=== PATIENT | female | born 1970 ===

== ENCOUNTER 2018-11-25 12:20 | Emergency (ER) | payer OTHER, SELFPAY ==
[2018-11-25 12:32] VITALS: RESP 18
[2018-11-25] MEDS ORDERED: Sodium Chloride 0.9% 1,000 ML IV STA (12:51)
[2018-11-25 13:13] LABS: BASO # 0.1 K/uL (0.0-0.2); BASO % 0.4 % (0.0-2.0); EOS % 0.1 % (0.0-4.0); HEMOGLOBIN 12.7 g/dL (11.0-16.0); LYMPH # 1.5 K/uL (1.0-4.3); LYMPH % 10.9 % (20.0-40.0); MEAN CELL VOLUME 86.7 fL (81.0-99.0); MEAN CORPUSCULAR HEMOGLOBIN 28.9 pg (27.0-31.0); MEAN CORPUSCULAR HGB CONC 33.3 g/dL (33.0-37.0); MEAN PLATELET VOLUME 7.5 fL (7.2-11.7); MONO # 1.3 K/uL (0.0-0.8); MONO % 9.8 % (0.0-10.0); NEUT # 10.5 K/uL (1.8-7.0); NEUT % 78.8 % (50.0-75.0); RBC 4.39 Mil/uL (3.80-5.20); RED CELL DISTRIBUTION WIDTH 13.2 % (11.5-14.5); WHITE BLOOD COUNT 13.3 K/uL (4.8-10.8)
[2018-11-25 13:20] LABS: HCG,QUALITATIVE URINE NEGATIVE (NEGATIVE)
[2018-11-25 13:25] LABS: ALB/GLOB RATIO 1.3 (1.0-2.1); ALBUMIN 4.7 g/dL (3.5-5.0); ALT/SGPT 12 U/L (9-52); AST/SGOT 26 U/L (14-36); BLOOD UREA NITROGEN 8 mg/dL (7-17); CALCIUM 9.2 mg/dl (8.6-10.4); GFR NON-AFRICAN AMERICAN > 60
[2018-11-25 13:27] LABS: SQUAMOUS EPITHIAL 26 /hpf (0-5); URINE BACTERIA FEW (<OCC); URINE BILIRUBIN NEGATIVE (NEGATIVE); URINE BLOOD 2+ (NEGATIVE); URINE CLARITY Hazy (Clear); URINE COLOR Yellow (YELLOW); URINE GLUCOSE (UA) NORMAL (Normal); URINE LEUKOCYTE ESTERASE 3+ Leu/uL (Negative); URINE PROTEIN NEGATIVE (NEGATIVE); URINE UROBILINOGEN NORMAL mg/dL (0.2-1.0); WBC CLUMPS MOD /hpf
--- NOTE | 2018-11-25 13:45 | C.PDOC ---
History Of Present Illness 48 y/o female presents to the ED accompanied by for complaints of lower abdominal pain that began 10 days ago. Patient then developed back pain for the past 4 days, and worsened abdominal pain on urination. She reports fever at home, with Tmax of 101.3. Patient has not yet seen a doctor for this complaint. She denies any nausea, vomiting, diarrhea, hematuria, or other associated symptoms. Patient tried taking AZO for the past 2 days without improvement. Time Seen by Provider: 11/25/18 12:50 Chief Complaint (Nursing): Abdominal Pain History Per: Patient History/Exam Limitations: no limitations Onset/Duration Of Symptoms: Days (x 10) Current Symptoms Are (Timing): Still Present Location Of Pain/Discomfort: Suprapubic Radiation Of Pain To:: Flank Quality Of Discomfort: "Pain" Associated Symptoms: Fever, Urinary Symptoms Past Medical History Reviewed: Historical Data, Nursing Documentation, Vital Signs Vital Signs: Last Vital Signs Temp 99.8 F H 11/25/18 12:32 Pulse 114 H 11/25/18 12:32 Resp 18 11/25/18 12:32 BP 132/80 11/25/18 12:32 Pulse Ox 100 11/25/18 12:32 - Medical History PMH: No Chronic Diseases Surgical History: Family History: States: No Known Family Hx - Social History Hx Alcohol Use: No Hx Substance Use: No - Immunization History Hx Tetanus Toxoid Vaccination: No Hx Influenza Vaccination: No Hx Pneumococcal Vaccination: No Review Of Systems Except As Marked, All Systems Reviewed And Found Negative. Respiratory: Negative for: Shortness of Breath Neurological: Negative for: Weakness Physical Exam - Physical Exam Additional Physical Exam Comments: Constitutional: No acute distress. Head: Normocephalic. Atraumatic. Eyes: PERRL. ENT: Moist mucous membranes. Neck: Supple. Cardiovascular: Regular rate. Radial pulse 2+ bilaterally. Chest: No tenderness. Respiratory: Clear to auscultation bilaterally. GI: Soft. Nondistended. +Suprapubic tenderness. Back: Bilateral CVA tenderness. Musculoskeletal: No tenderness or swelling of extremities. Skin: No rash. Neurologic: Alert, no focal deficit. ED Course And Treatment - Laboratory Results Result Diagrams: 11/25/18 13:08 11/25/18 13:08 Lab Results: Total Bilirubin 1.0 mg/dL (0.2-1.3) 11/25/18 13:08 AST 26 U/L (14-36) 11/25/18 13:08 ALT 12 U/L (9-52) 11/25/18 13:08 Alkaline Phosphatase 87 U/L (38-126) 11/25/18 13:08 Total Protein 8.4 g/dL (6.3-8.3) H 11/25/18 13:08 Albumin 4.7 g/dL (3.5-5.0) 11/25/18 13:08 Globulin 3.7 gm/dL (2.2-3.9) 11/25/18 13:08 Albumin/Globulin Ratio 1.3 (1.0-2.1) 11/25/18 13:08 Urine Color Yellow (YELLOW) 11/25/18 13:08 Urine Clarity Hazy (Clear) 11/25/18 13:08 Urine pH 7.0 (5.0-8.0) 11/25/18 13:08 Ur Specific [place] 1.004 (1.003-1.030) 11/25/18 13:08 Urine Protein Negative mg/dL (NEGATIVE) 11/25/18 13:08 Urine Glucose (UA) Normal mg/dL (Normal) 11/25/18 13:08 Urine Ketones Negative mg/dL (NEGATIVE) 11/25/18 13:08 Urine Blood 2+ (NEGATIVE) H 11/25/18 13:08 Urine Nitrate Negative (NEGATIVE) 11/25/18 13:08 Urine Bilirubin Negative (NEGATIVE) 11/25/18 13:08 Urine Urobilinogen Normal mg/dL (0.2-1.0) 11/25/18 13:08 Ur Leukocyte Esterase 3+ Curtis/uL (Negative) H 11/25/18 13:08 Urine WBC (Auto) 504 /hpf (0-5) H 11/25/18 13:08 Urine RBC (Auto) 10 /hpf (0-3) H 11/25/18 13:08 Urine WBC Clumps (Auto) Mod /hpf (NONE) H 11/25/18 13:08 Ur Squamous Epith Cells 26 /hpf (0-5) H 11/25/18 13:08 Urine Bacteria Few (<OCC) H 11/25/18 13:08 Urine HCG, Qual Negative (NEGATIVE) 11/25/18 13:08 Urine HCG, Qual Negative (NEGATIVE) 11/25/18 13:08 O2 Sat by Pulse Oximetry: 100 (RA) Pulse Ox Interpretation: Normal Medical Decision Making Medical Decision Making: Plan: Blood work and UA ordered. Urine culture sent. NS IV fluids infusing. Ciprofloxacin administered and prescribed. Patient feels better. Follow up primary care, return to ED for worsening pain, lethargy, vomiting, dyspnea, fever, or any other problem. Disposition - Disposition Disposition: HOME/ ROUTINE Disposition Time: 14:06 Condition: FAIR Prescriptions: Acetaminophen [Tylenol 325mg tab] 2 tab PO Q4H #30 tab Ciprofloxacin [Cipro] 500 mg PO BID #19 tab Ibuprofen [Motrin] 1 tab PO Q6 #30 tab Instructions: Urinary Tract Infections in Adults Forms: [facility] (Welsh) - Clinical Impression Clinical Impression: UTI (urinary tract infection) - Scribe Statement The provider has reviewed the documentation as recorded by the Leslye Lieberman Provider Attestation: All medical record entries made by the Leslye were at my direction and personally dictated by me. I have reviewed the chart and agree that the record accurately reflects my personal performance of the history, physical exam, medical decision making, and the department course for this patient. I have also personally directed, reviewed, and agree with the discharge instructions and disposition.
[2018-11-25] MEDS ORDERED: Ciprofloxacin 400mg/200ml D5W 400 MG/200 ML BAG IVPB STA (13:47)
[2018-11-25] MEDS ORDERED: Ciprofloxacin 400mg/200ml D5W 400 MG/200 ML BAG IVPB ONE (14:28)
[2018-11-25 15:52] VITALS: BP 99/61; PULSE 98; TEMP 100; O2SAT 98
== END 2018-11-25 17:12 | disposition home or self-care (01) ==
LOC: C.ER 12:20
DX: N39.0 Urinary tract infection, site not specified (principal)
CPT/HCPCS: 80053; 81001; 84703; 85025; 87086; 87181; 96361; 96365; 96366; 96375; 99285; J0744; J1885; J7030